=== PATIENT | male | born 1960 | race Two or more races ===

== ENCOUNTER 2025-03-08 06:25 | Day surgery (SDC) | payer OTHER ==
[~2025-03-08 06:25] MED LIST: LEVO-T125 MCG PO; LIPITOR20 MG PO; ZESTRIL10 M1 PO
[2025-03-08] MEDS ORDERED: POVIDONE-IODINE 118 ML BOTT TOP ONE (08:55)
[2025-03-08] MEDS ORDERED: HEMOSTATIC MATRIX 1 KIT KIT TOP ONE (08:55)
[2025-03-08] MEDS ORDERED: DIBUCAINE 30 GM TUBE ONE (08:55)
[2025-03-08] MEDS ORDERED: BUPIVACAINE HCL/Mpf 0.5% 10ML VIAL ONE (08:55)
[2025-03-08] MEDS ORDERED: LIDOCAINE HCL 1%/EPINEPHRINE 20ML VIAL IJ ONE (08:56)
== END 2025-03-08 14:10 | disposition home or self-care (01) ==
LOC: CIR.AMB 06:25
PROVIDERS: ATTEND Colon & Rectal Surgery
DX: K60.321 Anal fistula, complex, initial (principal); K60.50 Anorectal fistula, unspecified

== ENCOUNTER 2025-07-19 06:00 | Day surgery (SDC) | payer OTHER ==
[2025-07-19] MEDS ORDERED: CEFTRIAXONE SODIUM 2,000 MG VIAL ONE (06:55)
[2025-07-19] MEDS ORDERED: METRONIDAZOLE/SODIUM CHLORIDE 500 MG/100 ML PIGGYBACK IV ONE (06:55)
[2025-07-19] MEDS ORDERED: BUPIVACAINE HCL/MPF 0.5% 30ML VIAL ONE (07:09)
[2025-07-19] MEDS ORDERED: DIBUCAINE 30 GM TUBE ONE (07:10)
[2025-07-19] MEDS ORDERED: LIDOCAINE HCL 1%/EPINEPHRINE 20ML VIAL IJ ONE (07:10)
[2025-07-19] MEDS ORDERED: HEMOSTATIC MATRIX 1 KIT KIT TOP ONE (07:10)
[2025-07-19] MEDS ORDERED: POVIDONE-IODINE 118 ML BOTT TOP ONE (07:30)
== END 2025-07-19 12:00 | disposition home or self-care (01) ==
LOC: CIR.AMB 06:00
PROVIDERS: ATTEND Colon & Rectal Surgery
DX: K60.52 Anorectal fistula, complex (principal); D12.9 Benign neoplasm of anus and anal canal; K64.8 Other hemorrhoids